=== PATIENT | male | born 1980 | race Caucasian/White ===

== ENCOUNTER 2016-08-24 20:58 | Emergency (ER) | payer OTHER, BC ==
[2016-08-24 21:06] VITALS: BP 158/102; PULSE 104; TEMP 98.7; BMI 35.4
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
[2016-08-24] MEDS ORDERED: ACETAMINOPHEN 500 MG TABLET (FP) PO ONE (22:40)
[2016-08-24] MEDS ORDERED: ACETAMINOPHEN 500 MG TABLET (FP) ONE (22:42)
== END 2016-08-24 22:46 | disposition home or self-care (01) ==
LOC: JERFT 20:58
DX: S16.1XXA Strain of muscle, fascia and tendon at neck level, initial encounter (principal); V43.52XA Car driver injured in collision with other type car in traffic accident, initial encounter; Y92.414 Local residential or business street as the place of occurrence of the external cause; W22.11XA Striking against or struck by driver side automobile airbag, initial encounter; Y93.89 Activity, other specified; Y99.8 Other external cause status
CPT/HCPCS: 70450-TC; 99281-25